=== PATIENT | female | born 1945 | race Hispanic/Latino ===

== ENCOUNTER → 2018-02-14 | Outpatient (CLI) | payer OTHER ==
[~2018-02-14] MED LIST: AMLODIPINE PO; BENEFIBER1 EAC1 PO; GABAPENTIN PO; LISINOPRIL-HCT1 EACH PO; LISINOPRIL-HCTZ PO; NASONEX; NORCO 7.5-3251 EACH PO; PANTOPRAZOLE PO; PANTOPRAZOLE SO40 MG PO; SAVELLA PO
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
== END ==
LOC: CT 10:59
PROVIDERS: ATTEND Family Medicine
DX: S09.90XA Unspecified injury of head, initial encounter (principal)
CPT/HCPCS: 70450; 72050

== ENCOUNTER → 2021-07-25 | Day surgery (SDC) | payer MEDICARE ==
[~2021-07-25] MED LIST changes: +BACLOFEN10 MG PO; +CETIRIZINE HCL10 MG PO; +OR PHACO EYE KIT ONE; +PREOP PHACO EYE KIT ONE
[2021-07-25 13:30] VITALS: BP 124/87
== END | disposition home or self-care (01) ==
LOC: OR 11:02
PROVIDERS: ATTEND Ophthalmology
DX: H25.12 Age-related nuclear cataract, left eye (principal); K21.9 Gastro-esophageal reflux disease without esophagitis; G89.29 Other chronic pain; M79.7 Fibromyalgia; M06.9 Rheumatoid arthritis, unspecified; I10 Essential (primary) hypertension; Z88.1 Allergy status to other antibiotic agents; Z01.812 Encounter for preprocedural laboratory examination; Z20.822 Contact with and (suspected) exposure to COVID-19
CPT/HCPCS: 66984; U0002; V2632

== ENCOUNTER → 2021-08-15 | Day surgery (SDC) | payer MEDICARE ==
[2021-08-11 10:26] LABS: BASOPHILS # (AUTO) 0.1 (0.0-0.1); BASOPHILS % 1.1 % (0.0-1.0); EOSINOPHILS # (AUTO) 0.3 (0.0-0.4); EOSINOPHILS % 3.9 % (0.0-6.0); HEMATOCRIT 34.2 % (34.2-44.1); HEMOGLOBIN 10.8 g/dL (12.0-16.0); LYMPHOCYTES # (AUTO) 2.5 (1.0-3.2); MEAN CORPUSCULAR HEMOGLOBIN 27.6 pg (28-32); MEAN CORPUSCULAR HGB CONC 31.6 g/dL (31-35); MEAN CORPUSCULAR VOLUME 87.2 fL (81-99); MONOCYTES # (AUTO) 0.7 (0.2-0.8); MONOCYTES % 10.4 % (4.4-11.3); NEUTROPHILS # (AUTO) 3.5 (2.1-6.9); NEUTROPHILS % 49.2 % (38.7-80.0); PLATELET COUNT 238 x10e3/uL (140-360); RED BLOOD COUNT 3.92 x10e6/uL (3.6-5.1); RED CELL DISTRIBUTION WIDTH 12.7 % (11.7-14.4)
[2021-08-15 13:24] VITALS: BP 133/68
== END | disposition home or self-care (01) ==
LOC: OR 10:29
PROVIDERS: ATTEND Ophthalmology
DX: H25.11 Age-related nuclear cataract, right eye (principal); I10 Essential (primary) hypertension; K21.9 Gastro-esophageal reflux disease without esophagitis; Z88.1 Allergy status to other antibiotic agents; Z01.812 Encounter for preprocedural laboratory examination; Z20.822 Contact with and (suspected) exposure to COVID-19
CPT/HCPCS: 36415; 66984; 85025; U0002; V2632

== ENCOUNTER → 2021-08-28 | Outpatient (CLI) | payer MEDICARE ==
[~2021-08-28] MED LIST changes: -OR PHACO EYE KIT ONE; -PREOP PHACO EYE KIT ONE
== END ==
LOC: RAD 12:08
PROVIDERS: ATTEND Internal Medicine Endocrinology, Diabetes & Metabolism
DX: M21.611 Bunion of right foot (principal); W22.09XA Striking against other stationary object, initial encounter

== ENCOUNTER → 2022-09-14 | Outpatient (CLI) | payer MEDICARE ==
[2022-09-14 10:00] LABS: BASOPHILS # (AUTO) 0.1 (0.0-0.1); BASOPHILS % 1.1 % (0.0-1.0); EOSINOPHILS # (AUTO) 0.5 (0.0-0.4); EOSINOPHILS % 6.1 % (0.0-6.0); HEMATOCRIT 37.3 % (34.2-44.1); HEMOGLOBIN 11.6 g/dL (12.0-16.0); LYMPHOCYTES # (AUTO) 2.6 (1.0-3.2); LYMPHOCYTES % 31.6 % (18.0-39.1); MEAN CORPUSCULAR HEMOGLOBIN 27.8 pg (28-32); MEAN CORPUSCULAR HGB CONC 31.1 g/dL (31-35); MEAN CORPUSCULAR VOLUME 89.2 fL (81-99); MONOCYTES # (AUTO) 0.6 (0.2-0.8); MONOCYTES % 7.7 % (4.4-11.3); NEUTROPHILS # (AUTO) 4.3 (2.1-6.9); PLATELET COUNT 243 x10e3/uL (140-360); RED BLOOD COUNT 4.18 x10e6/uL (3.6-5.1); RED CELL DISTRIBUTION WIDTH 12.5 % (11.7-14.4)
[2022-09-14 10:35] LABS: ALBUMIN 3.5 g/dL (3.5-5.0); ALBUMIN/GLOBULIN RATIO 0.9 (0.8-2.0); ANION GAP 16.3 mmol/L (8-16); CALCIUM 9.1 mg/dL (8.4-10.2); CREATININE, SERUM 1.04 mg/dL (0.57-1.11); POTASSIUM 3.3 mmol/L (3.5-5.1)
[2022-09-14 10:54] LABS: THYROID STIMULATING HORMONE 1.147 uIU/mL (0.350-4.940)
== END ==
LOC: LAB 09:43
PROVIDERS: ATTEND Nurse Practitioner Primary Care
DX: N18.30 Chronic kidney disease, stage 3 unspecified (principal); E78.5 Hyperlipidemia, unspecified; M79.7 Fibromyalgia
CPT/HCPCS: 36415; 80053; 80061; 84443; 85025

== ENCOUNTER → 2023-01-10 | Outpatient (CLI) | payer MEDICARE | LOC: RAD 15:50 | PROVIDERS: ATTEND Internal Medicine Endocrinology, Diabetes & Metabolism | DX: R05.1 Acute cough (principal); J06.9 Acute upper respiratory infection, unspecified | CPT/HCPCS: 71046 ==

== ENCOUNTER → 2023-04-30 | Outpatient (CLI) | payer MEDICARE | LOC: RAD 08:49 | PROVIDERS: ATTEND Internal Medicine Endocrinology, Diabetes & Metabolism | DX: M25.512 Pain in left shoulder (principal); M54.12 Radiculopathy, cervical region; R20.2 Paresthesia of skin | CPT/HCPCS: 72050 ==

== ENCOUNTER → 2023-06-04 | Outpatient (CLI) | payer MEDICARE | LOC: CARD 09:14 | PROVIDERS: ATTEND Internal Medicine Endocrinology, Diabetes & Metabolism | DX: R60.0 Localized edema (principal); M79.662 Pain in left lower leg; M79.661 Pain in right lower leg | CPT/HCPCS: 93925; 93970 ==

== ENCOUNTER → 2024-04-09 | Outpatient (REF) | payer MEDICARE | LOC: RAD 10:19 | PROVIDERS: ATTEND Internal Medicine Endocrinology, Diabetes & Metabolism | DX: R22.0 Localized swelling, mass and lump, head (principal); W19.XXXA Unspecified fall, initial encounter | CPT/HCPCS: 70150; 70160 ==

== ENCOUNTER → 2024-04-13 | Outpatient (REF) | payer MEDICARE | LOC: CT 15:22 | PROVIDERS: ATTEND Neurological Surgery | DX: M54.12 Radiculopathy, cervical region (principal) | CPT/HCPCS: 72125 ==

== ENCOUNTER 2025-03-06 19:10 | Emergency (ER) | payer MEDICARE ==
[~2025-03-06] VITALS: Ht 157.5 cm; Wt 68.0 kg
[2025-03-06 19:22] VITALS: RESP 18; TEMP 98.3
[2025-03-06 19:58] LABS: BASOPHILS % 0.6 % (0.0-1.0); EOSINOPHILS # (AUTO) 0.1 (0.0-0.4); HEMATOCRIT 34.4 % (34.2-44.1); HEMOGLOBIN 11.4 g/dL (12.0-16.0); LYMPHOCYTES # (AUTO) 1.6 (1.0-3.2); LYMPHOCYTES % 33.3 % (18.0-39.1); MEAN CORPUSCULAR HEMOGLOBIN 27.9 pg (28-32); MEAN CORPUSCULAR HGB CONC 33.1 g/dL (31-35); MEAN CORPUSCULAR VOLUME 84.3 fL (81-99); MONOCYTES # (AUTO) 0.6 (0.2-0.8); NEUTROPHILS # (AUTO) 2.5 (2.1-6.9); NEUTROPHILS % 51.5 % (38.7-80.0); PLATELET COUNT 181 x10e3/uL (140-360); RED BLOOD COUNT 4.08 x10e6/uL (3.6-5.1); RED CELL DISTRIBUTION WIDTH 12.4 % (11.7-14.4); WHITE BLOOD COUNT 4.86 x10e3/uL (4.8-10.8)
[2025-03-06 20:23] LABS: INFLUENZA A AG NEGATIVE (NEGATIVE); INFLUENZA B AG NEGATIVE (NEGATIVE)
[2025-03-06 20:24] LABS: ALBUMIN 3.6 g/dL (3.5-5.0); ANION GAP 15.4 mmol/L (8-16); BILIRUBIN,TOTAL 0.5 mg/dL (0.2-1.2); CALCIUM 8.9 mg/dL (8.4-10.2); CORONAVIRUS COVID-19 AG NEGATIVE (NEGATIVE); CREATININE, SERUM 0.98 mg/dL (0.57-1.11); POTASSIUM 3.4 mmol/L (3.5-5.1); TOTAL PROTEIN 7.2 g/dL (6.5-8.1)
[2025-03-06 20:29] LABS: TROPONIN I 0.018 ng/mL (0-0.300)
[2025-03-06] MEDS ORDERED: PREDNISONE20 MG PO (21:11)
[2025-03-06] MEDS ORDERED: AZITHROMYCIN250 MG PO (21:11)
[2025-03-06] MEDS ORDERED: VENTOLIN HFA18 GM INH (21:11)
[2025-03-06 21:30] VITALS: PULSE 71
[2025-03-06 21:37] VITALS: BP 138/62; O2SAT 98
== END 2025-03-06 21:39 | disposition home or self-care (01) ==
LOC: ER 19:16
DX: R06.02 Shortness of breath (principal); J18.9 Pneumonia, unspecified organism; R05.9 Cough, unspecified; I10 Essential (primary) hypertension; M06.9 Rheumatoid arthritis, unspecified; K21.9 Gastro-esophageal reflux disease without esophagitis; M79.7 Fibromyalgia
CPT/HCPCS: 36415; 71045; 80053; 82550; 83690; 83880; 84484; 85025; 93005; 99284

== ENCOUNTER → 2025-06-25 | Outpatient (REF) | payer MEDICARE ==
[~2025-06-25] MED LIST changes: +AZITHROMYCIN250 MG PO; +PREDNISONE20 MG PO; +VENTOLIN HFA18 GM INH
== END ==
LOC: RAD 10:40
PROVIDERS: ATTEND Student in an Organized Health Care Education/Training Program
DX: M79.642 Pain in left hand (principal); M79.641 Pain in right hand; M25.572 Pain in left ankle and joints of left foot; M25.571 Pain in right ankle and joints of right foot

== ENCOUNTER → 2025-06-30 | Outpatient (REF) | payer MEDICARE | LOC: DX 15:00 | PROVIDERS: ATTEND Student in an Organized Health Care Education/Training Program | DX: Z13.820 Encounter for screening for osteoporosis (principal) | CPT/HCPCS: 77080 ==